=== PATIENT | male | born 1970 | race Caucasian/White ===

== ENCOUNTER 2019-02-16 06:52 | Inpatient (IN) | payer OTHER ==
[~2019-02-16] VITALS: Ht 160 cm; Wt 67.6 kg
[2019-02-16 06:56] VITALS: Ht 160 cm; Wt 67.6 kg
--- NOTE | 2019-02-16 07:06 | NUR ---
PT BIB FAMILY C/C ABD PAIN X [address] CHRISTIANNE TAN
--- NOTE | 2019-02-16 07:40 | NUR ---
DR WINTERS AT BEDSIDE TO EVAL
[2019-02-16 08:07] LABS: PLATELET COUNT 255 x10^3mcL (130-400); RED CELL DISTRIBUTION WIDTH 14.4 % (11.5-14.5)
[2019-02-16 08:17] LABS: ALKALINE PHOSPHATASE 98 U/L (46-116); BILIRUBIN TOTAL 0.89 mg/dL (0.20-1.00); CALCIUM 7.9 mg/dL (8.5-10.1); CARBON DIOXIDE 25.2 mmol/L (21-32); CHLORIDE SERUM 97 mmol/L (98-107); GFR1 > 60 mL/min; GLUCOSE SERUM 192 mg/dL (74-106); POTASSIUM SERUM 4.1 mmol/L (3.5-5.1); SODIUM SERUM 132 mmol/L (136-145)
--- NOTE | 2019-02-16 08:17 | NUR ---
TAKEN TO RADIOLOGY FOR US
[2019-02-16 08:44] LABS: CREATININE SERUM 0.7 mg/dL (0.7-1.3)
[2019-02-16 09:28] LABS: ALT/SGPT 18 U/L (16-63)
[2019-02-16 09:29] LABS: BAND NEUTROPHIL 3 % (0-10); BASOPHIL 0 % (0-2); MONOCYTE 6 % (0-7); SEGMENTED NEUTROPHILS 77 % (37-75)
[2019-02-16 09:30] LABS: PLATELET MORPHOLOGY PLATELETS NORMAL; rbc morphology (normal/abnorm) NORMAL (NORMAL)
[2019-02-16 09:41] LABS: AST/SGOT 123 U/L (15-37)
[2019-02-16 09:43] LABS: ALBUMIN 3.3 g/dL (3.4-5.0); LIPASE 25927 IU/L (73-393)
--- NOTE | 2019-02-16 09:45 | NUR ---
DR WINTERS A BEDSIDE TO GO OVER PLAN OF CARE
--- NOTE | 2019-02-16 10:28 | NUR ---
PT ADMIT TO [facility] ROOM 205B GAVE REPORT TO NAVNEET
--- NOTE | 2019-02-16 10:50 | NUR ---
PLEASE ENTER FULL NAMES OF SPORTS ATTORNEY/RN Patient data collected by (SPORTS ATTORNEY):ARTHUR GUY Assessment reviewed and completed by (RN): FELIPA YANEZ
--- NOTE | 2019-02-16 10:51 | NUR ---
RECEIVED PATIENT FROM ER NURSE AT THIS TIME ACCOMPANIED BY . PATIENT ABLE TO AMBULATE FROM RNEY TO BED AT THIS TIME. AT BEDSIDE. A/O X4 AND ABLE TO MAKE NEEDS KNOWN. BREATHING EVEN AND UNLABORED. NO RESPIRATORY DISTRESS NOTED. PULSES PALPABLE AND NO EDEMA NOTED. PATIENT DENIES CHEST PAIN/PRESSURE. C/O MILD EPIGASTRIC PAIN, BUT DENIES NEED FOR PAIN MEDICATION. VOIDS FREELY WITH NO C/O BURNING/DISCOMFORT. IV PATENT AND INTACT TO RAC. ALL QUESTIONS AND CONCERNS ADDRESSED. ALL NEEDS ATTENDED TO. WILL CONTINUE TO MONITOR
[2019-02-16 11:21] VITALS: BP 117/74
--- NOTE | 2019-02-16 16:36 | NUR ---
PATIENT C/O 6/10 EPIGASTRIC PAIN AT THIS TIME. PATIENT MEDICATED WITH TORADOL PRN AT THIS TIME. PATIENT TOLERATED WELL. NO ADVERSE EFFECTS NOTED. ALL NEEDS ATTENDED TO. WILL CONTINUE TO MONITOR
[2019-02-16 17:57] VITALS: BP 93/66
[2019-02-16 18:00] VITALS: BP 124/65
--- NOTE | 2019-02-16 18:34 | NUR ---
PATIENT RESTING COMFORTABLY IN BED AT THIS TIME. NO APPARENT DISTRESS OR DISCOMFORT NOTED. AT BEDSIDE. IV PATENT AND INTACT. ALL QUESTIONS AND CONCERNS ADDRESSED. SAFETY PRECAUTIONS MAINTAED. ALL NEEDS ATTENDED TO. WILL ENDORSE ALL CARE TO IN SCHOOL SUSPENSION COORDINATOR NURSE
--- NOTE | 2019-02-16 19:15 | NUR ---
PT RECIEVED FROM THE DAY SHIFT RN. PT IS ALERT AND ORIENTED X3, CALM AND COOPERATIVE WITH CARE, NO ACUTE DISTRESS NOTED. PT IS COMPLAINING OF ABDOMINAL PAIN IN THE MID UPPER ABDOMINAL AREA, PT REFUSED PAIN MEDICATION AT THIS TIME, STATING THAT THE PAIN IS TOLERABLE. IS AT THE BEDSIDE, PATIENT HAS NO FURTHER QUESTIONS OR CONCERNS AT THIS TIME. SAFETY AND COMFORT MEASURES MAINTAINED, BED IN LOWEST POSITION, CALL LIGHT WITHIN REACH.
[2019-02-16 20:34] VITALS: BP 124/72
--- NOTE | 2019-02-16 23:58 | NUR ---
PT IS RESTING IN BED WITH EYES CLOSED AT THIS TIME. NO ACUTE DISTRESS NOTED. PT HAS BEEN CALM AND COOPERATIVE WITH CARE AT THIS TIME. IS AT THE BEDSIDE. SAFETY AND COMFORT MEASURES MAINTAINED, BED IN LOWEST POSITION, CALL LIGHT WITHIN REACH.
--- NOTE | 2019-02-17 01:43 | NUR ---
PT IS RESTING IN BED WITH EYES CLOSED AT THIS TIME. NO ACUTE DISTRESS NOTED. PT HAS BEEN CALM AND COOPERATIVE WITH CARE. IV INFUSING AND INTACT, IS AT THE BEDSIDE, SAFETY AND COMFORT MEASURES MAINTAINED, BED IN LOWEST POSITION, CALL LIGHT WITHIN REACH.
--- NOTE | 2019-02-17 03:33 | NUR ---
PT IS RESTING IN BED WITH EYES CLOSED. NO ACUTE DISTRESS NOTED AT THIS TIME. IS AT THE BEDSIDE, SAFETY AND COMFORT MEASURES MAINTAINED, BED IN LOWEST POSITION, CALL LIGHT WITHIN REACH, WILL CONTINUE TO MONITOR.
--- NOTE | 2019-02-17 04:44 | NUR ---
PT IS RESTING IN BED WITH EYES CLOSED AT THIS TIME. NO ACUTE DISTRESS NOTED. IV INFUSING AND INTACT AT THIS TIME. NO COMPLAINT OF PAIN AT THIS TIME. IS AT THE BEDSIDE. SAFETY AND COMFORT MEASURES MAINTAINED, BED IN LOWEST POSITION, CALL LIGHT WITHIN REACH.
--- NOTE | 2019-02-17 05:12 | NUR ---
PT HAS RESTED IN LONG INTERVALS THROUGHOUT THE SHIFT, PT HAS NO COMPLAINT OF PAIN AT THIS TIME. IV INFUSING AND INTACT, IS AT THE BEDSIDE, PT IS NPO AT THIS TIME. SAFETY AND COMFORT MEASURES MAINTAINED, BED IN LOWEST POSITION, CALL LIGHT WITHIN REACH, WILL ENDORSE CONTINUITY OF CARE TO THE ONCOMING RN.
[2019-02-17 05:53] VITALS: BP 118/70
[2019-02-17 06:27] LABS: CALCIUM 8.1 mg/dL (8.5-10.1); CARBON DIOXIDE 24.4 mmol/L (21-32); CHLORIDE SERUM 104 mmol/L (98-107); CREATININE SERUM 1.1 mg/dL (0.7-1.3); GFR1 > 60 mL/min; GLUCOSE SERUM 166 mg/dL (74-106); POTASSIUM SERUM 4.2 mmol/L (3.5-5.1); SODIUM SERUM 137 mmol/L (136-145)
[2019-02-17 06:48] LABS: BASOPHIL % 0.1 % (0-2); PLATELET COUNT 191 x10^3mcL (130-400)
[2019-02-17 07:22] VITALS: BP 119/69
--- NOTE | 2019-02-17 09:13 | NUR ---
ADMINISTERED MEDICATONS PER MAR. PATIENT COMPLAINING OF NAUSEA BUT NO PAIN AT THIS TIME. CALL LIGHT WITHIN REACH
--- NOTE | 2019-02-17 12:38 | NUR ---
FAMILY AT BEDSIDE. INFOMRED FAMILY OF PLAN OF CARE. ANSWERED QUESTIONS THAT AROSE. PATIENT NOT COMPLAINING OF PAIN A TTHIS TIME. CALL LIGHT WITHIN REACH, FAMILY AT BEDSIDE
--- NOTE | 2019-02-17 14:22 | NUR ---
PATIENT COMPLAINING OF 4/10 PAIN IN HEAD. NO PAIN MEDICATIONS IN OCT, CONTACTED SUE REYES AND RECEIVED ORDER FOR TORADOL 15MG IV ONCE AND TYLENOL 650 PO Q6HR PRN PAIN. ADMINSITERED TORADOL PER OCT. PATIENT COMPLAINING OF NAUSEA SO ZOFRAN ALSO GIVEN. PATIENT FAMILY IS NO LONGER AT BEDSIDE. PATIENT HAD NO ADDITIONAL COMPLAINTS AT THIS TIME. CALL LIGHT WITHIN REACH
--- NOTE | 2019-02-17 15:44 | NUR ---
PATIENT RESTING COMFORTABLY AT THIS TIME. FAMILY MEMBERS NOW AT BEDSIDE. CALL LIGHT WITHIN REACH
[2019-02-17 16:06] VITALS: BP 118/65
--- NOTE | 2019-02-17 18:11 | NUR ---
PATIENT FINISHED AMBULATING IN HALLWAY WITH FAMILY. SITTING UP IN BED, RESTING COMFORTABLY NO COMPLAINTS AT THIS TIME. CALL LIGHT WITHIN REACH
--- NOTE | 2019-02-17 19:00 | NUR ---
RECEIVED PT IN BED RESTING WITH FAMILY AT BEDSIDE.LUNG SOUND CTA. NO ACUTE RESPIRATTORY DISTRESS NOTED. DENIES ANY PAIN OR DISCOMFORT AT THIS TIME.IV SITE PATENT AND INTACT. BED IN LOWEST POSITION,CALL LIGHT WITHIN REACH. WILL CONTINUE TO MONITOR.
[2019-02-17 21:09] VITALS: BP 99/60
--- NOTE | 2019-02-18 04:55 | NUR ---
PT APPEARS TO BE SLEEPING. NO SOB NOTED. NO S/S OF PAIN. BED IN LOWEST POSITION,CALL LIGHT WITHIN REACH. WILL CONTINUE TO MONITOR.
[2019-02-18 06:00] VITALS: BP 114/61
[2019-02-18 06:39] LABS: PLATELET COUNT 192 x10^3mcL (130-400); RED CELL DISTRIBUTION WIDTH 14.3 % (11.5-14.5)
[2019-02-18 06:51] LABS: BASOPHIL % 0 % (0-2); CALCIUM 8.9 mg/dL (8.5-10.1); CARBON DIOXIDE 24.3 mmol/L (21-32); CHLORIDE SERUM 106 mmol/L (98-107); CREATININE SERUM 1.1 mg/dL (0.7-1.3); GFR1 > 60 mL/min; GLUCOSE SERUM 137 mg/dL (74-106); LIPASE 966 IU/L (73-393); SODIUM SERUM 139 mmol/L (136-145)
--- NOTE | 2019-02-18 07:21 | NUR ---
CARE ENDORSED TO DAY NURSE AILEEN.
--- NOTE | 2019-02-18 07:30 | NUR ---
A+OX4, NO RESPRIATORY DISTRESS NOTED, DENIES PAIN, DENIES NAUSEA, MEDSURG, PULSES MODERATE AND EQUAL AUGIE, LUNG SOUNDS CTA, TOLERATING RA, BOWEL SOUNDS HYPOACTIVE, VOIDING FREELY, GENERALIZED WEAKNESS, AMBULATORY, SKIN INTACT, IV IN RAC WITH D5 1/2 NS @ 100 ML/HR, SITE WNL, LIPASE 966.
--- NOTE | 2019-02-18 09:23 | NUR ---
PT RESTING IN BED, NO RESPIRATORY DISTRESS NOTED, DENIES PAIN, DENIES NAUSEA, CALL LIGHT WITHIN REACH.
[2019-02-18 09:51] VITALS: BP 115/67
--- NOTE | 2019-02-18 12:31 | NUR ---
PT RESTING IN BED, NO RESPIRATORY DISTRESS NOTED, DENIES PAIN, DENIES NAUSEA, CALL LIGHT WITHIN REACH.
--- NOTE | 2019-02-18 15:56 | NUR ---
PT SEEN AMBULATING AROUND UNIT INDEPENDENTLY, CONT TO DENY PAIN AND NAUSEA, NO RESPRIATORY DISTRESS NOTED.
[2019-02-18 16:00] VITALS: BP 113/68
--- NOTE | 2019-02-18 16:57 | NUR ---
PT RESTING IN BED, NO RESPIRATORY DISTRESS NOTED, DENIES PAIN, DENIES NAUSEA, CALL LIGHT WITHIN REACH.
--- NOTE | 2019-02-18 18:11 | NUR ---
PT RESTING IN BED, NO RESPIRATORY DISTRESS NOTED, DENIES PAIN, DENIES NAUSEA, STATES HE WILL AMBULATE AFTER DINNER, AT BEDSIDE, CALL LIGHT WITHIN REACH.
--- NOTE | 2019-02-18 19:14 | NUR ---
ENDORSED CARE TO ARIAN LEO.
--- NOTE | 2019-02-18 20:00 | NUR ---
PATIENT RECEIVED IN BED CONVERSING WITH ,PATIENT SEEMS COMFORTABLE, ORIENTED X4, SPEECH CLEAR, DENIED HEADACHE. BREATHING EVEN AND UNLABORED BS CLEAR,ON ROOM AIR SAT 96%. DENIED CHEST PAINS,HR=84BPM,MED/SURG PATIENT. IV SITE NO SIGN OF INFILTRATION.CLAIMED DULL BEARABLE ABDOMINAL DISCOMFORT PAIN RATED AT 3/10 PATIENT INFORMDE ABOUT PAIN MANAGEMENT. SAFETY PRECAUTIONS MAINTAINED. WILL CONTINUE TO MONITOR.
[2019-02-18 20:11] VITALS: BP 113/70
--- NOTE | 2019-02-18 21:58 | NUR ---
SCHEDULED MEDS ADMINISTERED,PATIENT INFORMED ABOUT MEDS ACTIONS AND PURPOSE PRIOR.
--- NOTE | 2019-02-19 00:21 | NUR ---
PATIENT ROUNDS MADE PATIENT RESTING COMFORTABLY THIS TIME. NO DISTRESS NOTED. IV SITE NO SIGN OF INFILTRATION. SAFETY PRECAUTIONS MAINTAINED. WILL CONTINUE TO MONITOR.
[2019-02-19 05:10] VITALS: BP 97/55
[2019-02-19 06:33] LABS: CALCIUM 8.4 mg/dL (8.5-10.1); CARBON DIOXIDE 26.6 mmol/L (21-32); CHLORIDE SERUM 107 mmol/L (98-107); CREATININE SERUM 1.1 mg/dL (0.7-1.3); GFR1 > 60 mL/min; GLUCOSE SERUM 149 mg/dL (74-106); POTASSIUM SERUM 4.1 mmol/L (3.5-5.1); SODIUM SERUM 142 mmol/L (136-145)
--- NOTE | 2019-02-19 06:37 | NUR ---
PATIENT HAD RESTFUL AND COMFORTABLE NIGHT, DENIED ABDOMINAL DISCOMFORTS. VOIDED AND HAD BM LAST NIGHT, AMBULATORY WITH STEADY GAIT. IV SITE NO SIGN OF INFILTRATION. SAFETY PRECAUTIONS MAINTAINED. WILL ENDORSE CONTINUITY OF CARE TO INCOMING NURSE.
[2019-02-19 06:45] LABS: BASOPHIL % 0.4 % (0-2); PLATELET COUNT 198 x10^3mcL (130-400); RED CELL DISTRIBUTION WIDTH 14.1 % (11.5-14.5)
--- NOTE | 2019-02-19 07:20 | NUR ---
BEDSIDE REPORT AND INTRODUCTION PERFORMED WITH INCOMING NURSE JHONATAN.
--- NOTE | 2019-02-19 07:23 | NUR ---
ASSUMED CARE OF PATIENT. SEEN RESTING IN BED THIS MORNING. EASILY AROUSABLE. NO COMPLAINTS OF PAIN OR DISCOMFORT. NO APPARENT DISTRESS NOTED. IV ON RAC PATENT AND INFUSING 100ML/HR D5 NS. WILL CONTINUE TO MONITOR.
--- NOTE | 2019-02-19 11:50 | NUR ---
PATIENT COMPLAINING OF SHARP ABDOMINAL PAIN WHEN WALKING AND TAKING DEEP BREATHS. STATES HE BROUGHT THIS UP DURING PHYSICIAN ROUNDS. NO NEW ORDERS HAVE BEEN PLACED. STATES HE DOES NOT HAVE THIS PAIN WHEN SITTING OR LAYING DOWN. PRN TYLENOL PROVIDED.
--- NOTE | 2019-02-19 14:57 | NUR ---
PATIENT SEEN RESTING IN BED WATCHING TV. NO ABDOMINAL PAIN AT THIS TIME. NO NEW ISSUES.
[2019-02-19 17:56] VITALS: BP 104/60
--- NOTE | 2019-02-19 18:42 | NUR ---
PATIENT SEEN IN BED WITH FAMILY AT BEDSIDE. NO COMPLAINTS OF PAIN OR DISCOMFORT. NO APPARENT DISTRESS NOTED. IV ON RAC PATENT AND CONTINUES TO INFUSE 100ML/HR D5 NS. NO SWELLING/REDNESS NOTED. WILL ENDORSE CARE TO ONCOMING RN.
--- NOTE | 2019-02-19 19:45 | NUR ---
RECEIVED PT FROM DAY SHIFT RN. PT IS RESTING IN BED ALERT AND ORIENTED x4 AND ABLE TO FOLLOW COMMANDS. FAMILY IS CURRENTLY AT THE BEDSIDE. PT IS STATELESS SPEAKING. PT DENIES ABD PAIN AT THIS TIME. DENIES CHEST PAIN OR SHORTNESS OF BREATH ON ROOM AIR. BREATHING IS EVEN AND UNLABORED ON ASSESSMENT. PT IS AMBULATORY INDEPENDENTLY BUT ENCOURAGED PT TO CALL WHEN USING THE RESTROOM IF HE NEEDS ASSISTANCE. THERE IS A RAC IV THAT IS CLEAN DRY AND INTACT AT THIS TIME. SAFETY MEASURES ARE IN PLACE. CALL LIGHT WITHIN REACH. BED IN LOWEST POSITION. WILL CONTINUE TO MONITOR.
[2019-02-19 20:58] VITALS: BP 99/61
--- NOTE | 2019-02-20 04:40 | NUR ---
PT RESTING IN BED SLEEPING. THERE ARE NO USE OF ACCESSORY MUSCLES OR LABORED BREATHING. NO DISTRESS NOTED.
[2019-02-20 05:26] VITALS: BP 117/67
[2019-02-20 06:40] LABS: CALCIUM 8.9 mg/dL (8.5-10.1); CARBON DIOXIDE 24.3 mmol/L (21-32); CHLORIDE SERUM 106 mmol/L (98-107); CREATININE SERUM 1.1 mg/dL (0.7-1.3); GFR1 > 60 mL/min; GLUCOSE SERUM 141 mg/dL (74-106); POTASSIUM SERUM 3.8 mmol/L (3.5-5.1); SODIUM SERUM 141 mmol/L (136-145)
[2019-02-20 06:44] LABS: BASOPHIL % 0.4 % (0-2); PLATELET COUNT 211 x10^3mcL (130-400)
--- NOTE | 2019-02-20 07:08 | NUR ---
RECEIVED BEDSIDE REPORT FROM CAR WORKER HELPER NURSE AT THIS TIME. PATIENT RESTING COMFORTABLY IN BED. NO APPARENT DISTRESS OR DISCOMFORT NOTED. BREATHING EVEN AND UNLABORED. NO RESPIRATORY DISTRESS OR DISCOMFORT NOTED. PATIENT DENIES CHEST PAIN/PRESSURE AT THIS TIME. IV PATENT AND INTACT. ALL QUESTIONS AND CONCERNS. ALL NEEDS ATTENDED TO. WILL CONTINUE TO MONITOR
[2019-02-20 09:23] VITALS: BP 116/62
--- NOTE | 2019-02-20 10:01 | NUR ---
ALL MORNING MEDICATION ADMINISTERED. PATIENT TOLERATED WELL. NO ADVERSE EFFECTS. ALL NEEDS ATTENDED TO. WILL CONTINUE TO MONITOR
--- NOTE | 2019-02-20 13:00 | NUR ---
PATIENT SITTING UP IN BED EATING LUNCH AT THIS TIME. PATIENT TOLERATING DIET WELL. NO APPARENT DISTRESS OR DISCOMFORT NOTED. PATIENT DENIES PAIN AT THIS TIME. ALL NEEDS ATTENDED TO. WILL CONTINUE TO MONITOR
--- NOTE | 2019-02-20 17:45 | NUR ---
PATIENT SITTING UP IN BED EATING DINNER AT THIS TIME. PATIENT TOLERATING WELL. NO APPARENT DISTRESS OR DISCOMFORT NOTED. ALL NEEDS ATTENDED TO. WILL CONTINUE TO MONITOR
[2019-02-20 17:58] VITALS: BP 104/59
--- NOTE | 2019-02-20 18:28 | NUR ---
PATIENT AMBULATING HALLWAYS WITH AT THIS TIME. PATIENT TOLERATING ACTIVITY WELL. NO SHORTNESS OF BREATH NOTED AT THIS TIME. ALL NEEDS ATTENDED TO. WILL CONTINUE TO MONITOR
--- NOTE | 2019-02-20 19:05 | NUR ---
PATIENT RESTING COMFORTABLY IN BED. NO APPARENT DISTRESS OR DISCOMFORT NOTED. IV PATENT AND INTACT. ALL QUESTIONS AND CONCERNS ADDRESSED. SAFETY PRECAUTIONS MAINTAINED. ALL NEEDS ATTENDED TO. WILL ENDORSE ALL CARE TO SHELLFISH WEIGHER NURSE
--- NOTE | 2019-02-20 19:35 | NUR ---
RECEIVED REPORT FROM DAY SHIFT RN. PT RESTING IN BED. BREATHING EVEN AND UNLABORED. NO C/O PAIN AT THIS TIME. IV TO RIGHT WRIST, D5NS INFUSING. SAFETY MEASURES IN PLACE. BED IN LOWEST POSITION. SIDE RAILS UP X2. DEMONSTRATED HOW TO USE THE CALL LIGHT FOR ASSISTANCE. CALL LIGHT WITHIN REACH. AT BEDSIDE.
[2019-02-20 20:53] VITALS: BP 114/54
--- NOTE | 2019-02-21 02:07 | NUR ---
PT RESTING WITH EYES CLOSED. NO RESP DISTRESS NOTED. NO FACIAL GRIMACING. CALL LIGHT WITHIN REACH. WILL CONTINUE TO MONITOR.
[2019-02-21 05:53] VITALS: BP 112/60
--- NOTE | 2019-02-21 06:23 | NUR ---
PT SLEPT WELL THROUGHOUT SHIFT. NO SOB ON ROOM AIR. NO C/O ABD PAIN. NO DISTRESS NOTED. SAFETY MEASURES MAINTAINED. CALL LIGHT WITHIN REACH. WILL ENDORSE CARE TO ONCOMING RN.
--- NOTE | 2019-02-21 07:30 | NUR ---
RECEIVED PT FROM GAS PLANT WORKER. PT AWAKE, ALERT. A/OX4. PT ON ROOM AIR WITH NO RESP DISTRESS NOTED. LUNGS CTA. IV ACCESS RIGHT WRIST C/D/I INFUSING D5NS AT 100ML/HR. PT DENIES ANY PAIN AT THIS TIME. PERIPHERAL PULSES PALPABLE, NO EDEMA NOTED. ACTIVE BOWEL SOUNDS NOTED. NO APPARENT ISSUES WITH ELIMINATION AT THIS TIME. PT AMBULATORY. SAFETY MEASURES IN PLACE, BED LOW AND LOCKED. CALL LIGHT WITHIN REACH.
[2019-02-21 07:56] VITALS: BP 130/78
--- NOTE | 2019-02-21 09:30 | NUR ---
PT INFORMED DISCHARGE ORDERS HAVE BEEN SIGNED. PT REPORTS HE WANTS TO WAIT UNTIL AFTER LUNCH TO BE DISCHARGED.
[2019-02-21 11:29] VITALS: BP 130/78
[2019-02-21 11:50] VITALS: BP 114/69
--- NOTE | 2019-02-21 12:48 | NUR ---
PT AWAKE, ALERT SITTING AT SIDE OF BED EATING LUNCH. NO ACUTE DISTRESS OR DISCOMFORT NOTED. FAMILY AT BEDSIDE. SAFETY MAINTAINED.
--- NOTE | 2019-02-21 13:30 | NUR ---
PT DISCHARGE INSTRUCTIONS/EDUCATION PROVIDED TO PATIENT AND FAMILY MEMBER WITH DIRECTOR SAFETY. PT VERBALIZED UNDERSTANDING. PT TO FOLLOW UP WITH PCP. IV ACCESS REMOVED WITH CATHETER INTACT. NO BLEEDING, SWELLING OR REDNESS NOTED. PT TO BE DISCHARGED HOME BY PRIVATE AUTO. SAFETY MEASURES MAINTAINED.
== END 2019-02-21 13:55 | disposition home or self-care (01) | DRG 282 ==
LOC: ED 06:52 → MU 10:04
PROVIDERS: Emergency Medicine; Internal Medicine; ADMIT Internal Medicine
DX: K85.90 Acute pancreatitis without necrosis or infection, unspecified (principal); E44.0 Moderate protein-calorie malnutrition; R73.9 Hyperglycemia, unspecified; Z88.0 Allergy status to penicillin; Z98.49 Cataract extraction status, unspecified eye; Z68.25 Body mass index [BMI] 25.0-25.9, adult
CPT/HCPCS: G0378; J1885; J2405; J3490; J7042; Q0162

== ENCOUNTER 2019-09-10 20:46 | Inpatient (IN) | payer OTHER ==
[~2019-09-10] VITALS: Ht 172.7 cm; Wt 75.4 kg
[2019-09-10 21:00] VITALS: Ht 172.7 cm; Wt 75.4 kg
[2019-09-10 21:46] LABS: BASOPHIL % 0.1 % (0-2); PLATELET COUNT 247 x10^3mcL (130-400); RED CELL DISTRIBUTION WIDTH 14.3 % (11.5-14.5)
[2019-09-10 22:04] LABS: CALCIUM 8.8 mg/dL (8.5-10.1); CARBON DIOXIDE 27.4 mmol/L (21-32); CREATININE SERUM 1.6 mg/dL (0.7-1.3); POTASSIUM SERUM 3.9 mmol/L (3.5-5.1)
[2019-09-10 22:09] LABS: ALBUMIN 3.8 g/dL (3.4-5.0); BILIRUBIN TOTAL 0.4 mg/dL (0.20-1.00); MAGNESIUM 2.4 mg/dL (1.8-2.4); PHOSPHOROUS 3.6 mg/dL (2.5-4.9)
[2019-09-11] VITALS (7 sets, daily range): BP systolic 107–130; BP diastolic 55–81
[2019-09-11 02:34] LABS: CHOLESTEROL 133 mg/dL (<200); CHOLESTEROL/HDL RATIO 8.3; HDL CHOLESTEROL 16 mg/dL (40-60); TRIGLYCERIDES 632 mg/dL (<150)
[2019-09-11 02:42] LABS: FREE T4 0.87 ng/dL (0.76-1.46); FREE THYROXINE INDEX 1.6 ug/dL (1.4-4.5); T4(THYROXINE) 4.9 ug/dL (4.7-13.3)
[2019-09-11 03:06] LABS: T3 TOTAL 1.08 ng/mL
[2019-09-11 07:00] LABS: BASOPHIL % 0.2 % (0-2); PLATELET COUNT 196 x10^3mcL (130-400); RED CELL DISTRIBUTION WIDTH 13.4 % (11.5-14.5)
[2019-09-11 07:46] LABS: CALCIUM 7.6 mg/dL (8.5-10.1); CARBON DIOXIDE 20.9 mmol/L (21-32); CHLORIDE SERUM 106 mmol/L (98-107); GFR1 > 60 mL/min; GLUCOSE SERUM 160 mg/dL (74-106); MAGNESIUM 2.3 mg/dL (1.8-2.4); PHOSPHOROUS 2.4 mg/dL (2.5-4.9); POTASSIUM SERUM 3.8 mmol/L (3.5-5.1); SODIUM SERUM 139 mmol/L (136-145)
[2019-09-11 14:19] LABS: microscopic required? NO
[2019-09-11 14:24] LABS: UA SPECIFIC GRAVITY <=1.005 (1.005-1.035); urine erythrocyte NEGATIVE (NEGATIVE)
[2019-09-11 14:45] LABS: AMPHETAMINE QUAL UR NONE DETECTED (See below)
[2019-09-12 04:57] VITALS: BP 118/76
[2019-09-12] MEDS ORDERED: ECO81 PO (06:15)
[2019-09-12] MEDS ORDERED: DELTASONE20 MG PO (06:15)
[2019-09-12] MEDS ORDERED: ATORVASTATIN CA40 M1 PO (06:15)
[2019-09-12 08:27] VITALS: BP 127/80
[2019-09-12] MEDS ORDERED: ARTIFICIAL TEAR30 ML OU (08:42)
[2019-09-12 10:40] VITALS: BP 118/76
== END 2019-09-12 11:35 | disposition home or self-care (01) | DRG 48 ==
LOC: ED 20:46 → DU 23:21 → EDBEDREQ 23:22 → DU 09-11 00:31
PROVIDERS: Specialist; ADMIT Family Medicine
DX: G51.0 Bell's palsy (principal); N17.0 Acute kidney failure with tubular necrosis; E83.39 Other disorders of phosphorus metabolism; H53.009 Unspecified amblyopia, unspecified eye; R29.702 NIHSS score 2; Z68.24 Body mass index [BMI] 24.0-24.9, adult; Z88.0 Allergy status to penicillin; Z82.49 Family history of ischemic heart disease and other diseases of the circulatory system; Z83.3 Family history of diabetes mellitus
CPT/HCPCS: 84439; 97116-GP; G0378; J1644; J7030; J7512